=== PATIENT | female | born 1965 | race Caucasian/White ===

== ENCOUNTER 2017-02-10 20:29 | Emergency (ER) | payer SELFPAY ==
[~2017-02-10] VITALS: Ht 170.2 cm; Wt 100.0 kg
[~2017-02-10 20:29] MED LIST: ABILIFY20 MG OR; ABILIFY5 MG OR; ALBUTEROL0.5 % IN; ALBUTEROL90 MCG IN; AMOXICILLIN500 MG OR; AMOXICILLIN500 MG PO; ARTHROTEC 50 OR; ATIVAN0.5 MG PO; ATIVAN1 MG PO; AUGMENTIN875TAB PO; BABY ASPIRIN81 MG OR; BACTRIM DS1 TAB OR; BACTRIM DS1 TAB PO; CARDIZEM120 MG OR; CELEXA20 M1 PO; CELEXA20 MG; CELEXA20 MG OR; CELEXA20 MG PO; CEPHALEXIN500 MG PO; CIPRO XR500 M1 OR; CIPRO500 MG OR; CIPRO500 MG PO; CIPROFLOXACN500 MG PO; COUMADIN5 MG PO; DOXYCYCL HYC100 MG PO; EC-NAPROSYN500 MG PO; ECOTRIN325 MG OR; FLEXERIL OR; FLEXERIL PO; HYDROCHLOROT50 MG OR; INDERAL10 MG PO; KLONOPIN1 MG OR; KLOR-CON20 MEQ OR; LAMICTAL100 M1 PO; LAMICTAL25 M1 PO; LASIX 20 MG TAB20 MG OR; LASIX20 MG OR; LORTAB 10 OR; LORTAB 10 PO; LORTAB 5 OR; LORTAB 5/3255 MG PO; LORTAB 7.5 OR; LORTAB 7.57.5 MG OR; LORTAB 7.57.5 MG PO; LORTAB5 PO; MEDDOSEPAK OR; MEDDOSEPAK PO; METHIMAZOLE10 MG OR; METHIMAZOLE10 MG PO; NAPROSYN500 MG OR; NAPROSYN500 MG PO; NAPROXEN375 MG PO; NAPROXEN500 MG OR; NO MEDS; PERCOCET 5/325M1 TAB PO; PRO-AIR; PROAIR HFA IN; SEROQUEL XR150 MG PO; SERTRALINE100 MG OR; SILVADENE1 % EX; SYMBICORT 160-4.5MCG IN; SYMBICORT1 AE1 IN; TEGRETOL200 MG PO; TRAZODONE150 MG OR; TRAZODONE50 MG PO; TYLENOL325 MG OR; TYLENOL500 MG OR; ULTRAM50 MG OR; VISTARIL 50MG C50 MG OR; VISTARIL50 MG OR; WARFARIN5 MG PO; WELLBUTRIN150 MG OR; XANAX0.25 MG OR; XANAX0.5 MG OR; XANAX0.5 MG PO; ZITHROMAX250 MG OR; ZITHROMAX500 MG OR; ZPAK PO
[2017-02-10] MEDS ORDERED: PERCOCET 5/325M1 TAB PO (21:30)
[2017-02-10 21:40] VITALS: BP 139/74
== END 2017-02-10 21:40 | disposition home or self-care (01) | DRG 605 ==
LOC: ED 20:29
PROC: 0H9QXZZ Drainage of Finger Nail, External Approach (ICD-10-PCS; principal; 2017-02-10)
DX: S60.011A Contusion of right thumb without damage to nail, initial encounter (principal); W23.1XXA Caught, crushed, jammed, or pinched between stationary objects, initial encounter; Y92.009 Unspecified place in unspecified non-institutional (private) residence as the place of occurrence of the external cause

== ENCOUNTER 2017-12-03 18:29 | Emergency (ER) | payer MEDICAID ==
[~2017-12-03] VITALS: Ht 170.2 cm; Wt 104.2 kg
[2017-12-03 19:25] LABS: URINE BILIRUBIN - DIPSTICK NEGATIVE (NEGATIVE); URINE BLOOD DIPSTICK NEGATIVE (NEGATIVE); URINE CLARITY CLEAR; URINE COLOR YELLOW; URINE GLUCOSE - DIPSTICK NEGATIVE (NEGATIVE); URINE KETONE NEGATIVE (NEGATIVE); URINE LEUK ESTERASE NEGATIVE (NEGATIVE); URINE NITRITE - DIPSTICK NEGATIVE (Negative); URINE PROTEIN - DIPSTICK NEGATIVE (NEG-TRACE); URINE SPECIFIC GRAVITY 1.025; URINE UROBILINOGEN - DIPSTICK 0.2 E.U./dL (0.2)
[2017-12-03] MEDS ORDERED: FLEXERIL PO (20:25)
[2017-12-03] MEDS ORDERED: MOTRIN800 MG PO (20:25)
[2017-12-03 20:38] VITALS: BP 160/74
== END 2017-12-03 20:37 | disposition home or self-care (01) | DRG 563 ==
LOC: ED 18:29
DX: S39.012A Strain of muscle, fascia and tendon of lower back, initial encounter (principal); I48.91 Unspecified atrial fibrillation; J44.9 Chronic obstructive pulmonary disease, unspecified; F31.9 Bipolar disorder, unspecified; F41.9 Anxiety disorder, unspecified; F17.210 Nicotine dependence, cigarettes, uncomplicated; X58.XXXA Exposure to other specified factors, initial encounter; Z86.73 Personal history of transient ischemic attack (TIA), and cerebral infarction without residual deficits

== ENCOUNTER 2018-06-24 22:10 | Emergency (ER) | payer MEDICAID ==
[~2018-06-24] VITALS: Ht 170.2 cm; Wt 111.8 kg
[~2018-06-24 22:10] MED LIST changes: +MOTRIN800 MG PO
[2018-06-24 22:35] LABS: HEMATOCRIT 45.3 % (37.0-47.0); HEMOGLOBIN 14.6 g/dl (12.0-16.0); IMMATURE GRANULOCYTES 0.1 % (0.0-5.0); MEAN CORPUSCULAR HGB 28.3 pG CALC (26.0-32.0); MEAN CORPUSCULAR HGB CONC 32.2 g/L CALC (32.0-36.0); NEUT# 3.52 thou/uL (2.00-7.15); RED BLOOD COUNT 5.16 mill/uL (4.20-5.60); RED CELL DISTRI WIDTH 13.2 % (11.5-15.5)
[2018-06-24 22:38] LABS: MEAN CELL VOLUME 87.8 fL CALC (80.0-100.0)
[2018-06-24 22:47] LABS: ALBUMIN 3.4 g/dL (3.2-5.0); ALKALINE PHOSPHATASE 124 u/l (38-126); ANION GAP 8 (6-22 (CALC)); BILIRUBIN, TOTAL 0.5 mg/dL (0.0-1.4); BUN 12 mg/dL (7-17); BUN/CREATININE RATIO 23 (12-20 (CALC)); CARBON DIOXIDE 29 mmol/l (22-30); CHLORIDE 108 mmol/l (95-108); CREATININE 0.5 mg/dL (0.5-1.0); GFR > 60 ML/MIN (>=60 (CALC)); GFR FOR AFR.AMER. > 60 ML/MIN (>=60 (CALC)); POTASSIUM 4.2 mmol/l (3.5-5.1); SGOT/AST 20 u/l (14-36); SODIUM 141 mmol/l (137-146); TOTAL PROTEIN 6.6 g/dL (6.3-8.2)
[2018-06-24 23:10] VITALS: BP 164/78
[2018-06-24] MEDS ORDERED: PREDNISONE10 MG PO (23:14)
[2018-06-24] MEDS ORDERED: TORADOL PO (23:14)
== END 2018-06-24 23:28 | disposition home or self-care (01) ==
LOC: ED 22:10
PROVIDERS: Family Medicine
DX: J44.1 Chronic obstructive pulmonary disease with (acute) exacerbation (principal); F17.210 Nicotine dependence, cigarettes, uncomplicated; R06.02 Shortness of breath; R05 Cough; S29.011A Strain of muscle and tendon of front wall of thorax, initial encounter; X58.XXXA Exposure to other specified factors, initial encounter

== ENCOUNTER 2018-06-30 22:18 | Emergency (ER) | payer OTHER ==
[~2018-06-30] VITALS: Ht 170.2 cm; Wt 111.0 kg
[~2018-06-30 22:18] MED LIST changes: +PREDNISONE10 MG PO; +TORADOL PO
[2018-07-01] MEDS ORDERED: ALBUTEROL SUL0.083 % IN (00:38)
[2018-07-01 04:45] VITALS: BP 122/68
== END 2018-07-01 04:45 | disposition home or self-care (01) ==
LOC: ED 22:18
DX: J44.9 Chronic obstructive pulmonary disease, unspecified (principal); F17.200 Nicotine dependence, unspecified, uncomplicated; R06.02 Shortness of breath; Z76.0 Encounter for issue of repeat prescription

== ENCOUNTER 2018-07-24 18:18 | Emergency (ER) | payer OTHER ==
[~2018-07-24] VITALS: Ht 170.2 cm; Wt 100.0 kg
[~2018-07-24 18:18] MED LIST changes: +ALBUTEROL SUL0.083 % IN
[2018-07-24 18:52] LABS: GFR > 60 ML/MIN (>=60 (CALC)); GFR FOR AFR.AMER. > 60 ML/MIN (>=60 (CALC))
[2018-07-24 18:53] LABS: HEMATOCRIT 46.6 % (37.0-47.0); HEMOGLOBIN 15.4 g/dl (12.0-16.0); IMMATURE GRANULOCYTES 0.4 % (0.0-5.0); MEAN CELL VOLUME 86.9 fL CALC (80.0-100.0); MEAN CORPUSCULAR HGB 28.7 pG CALC (26.0-32.0); NEUT# 2.9 thou/uL (2.00-7.15); RED BLOOD COUNT 5.36 mill/uL (4.20-5.60); RED CELL DISTRI WIDTH 12.2 % (11.5-15.5)
[2018-07-24 19:06] LABS: ALBUMIN 3.3 g/dL (3.2-5.0); ALKALINE PHOSPHATASE 119 u/l (38-126); ANION GAP 12 (6-22 (CALC)); BILIRUBIN, TOTAL 0.3 mg/dL (0.0-1.4); BUN 10 mg/dL (7-17); BUN/CREATININE RATIO 14 (12-20 (CALC)); CARBON DIOXIDE 29 mmol/l (22-30); CHLORIDE 105 mmol/l (95-108); CREATININE 0.7 mg/dL (0.5-1.0); GFR > 60 ML/MIN (>=60 (CALC)); GFR FOR AFR.AMER. > 60 ML/MIN (>=60 (CALC)); SGOT/AST 18 u/l (14-36); SODIUM 142 mmol/l (137-146); TOTAL PROTEIN 6.7 g/dL (6.3-8.2)
[2018-07-24 20:13] VITALS: BP 116/85
[2018-07-24 20:41] LABS: URINE BILIRUBIN - DIPSTICK NEGATIVE (NEGATIVE); URINE BLOOD DIPSTICK NEGATIVE (NEGATIVE); URINE COLOR YELLOW; URINE GLUCOSE - DIPSTICK NEGATIVE (NEGATIVE); URINE KETONE NEGATIVE (NEGATIVE); URINE LEUK ESTERASE NEGATIVE (NEGATIVE); URINE NITRITE - DIPSTICK NEGATIVE (Negative); URINE PROTEIN - DIPSTICK NEGATIVE (NEG-TRACE); URINE SPECIFIC GRAVITY 1.025; URINE UROBILINOGEN - DIPSTICK 0.2 E.U./dL (0.2)
[2018-07-24 20:45] LABS: BARBITURATES NEGATIVE (NEGATIVE); COCAINE NEGATIVE (NEGATIVE); METHADONE NEGATIVE (NEGATIVE); OXCYCODONE NEGATIVE (NEGATIVE); TETRAHYDROCANNABIONOL POSITIVE (NEGATIVE); TRICYLIC ANTIDEPRESSANTS NEGATIVE (NEGATIVE)
== END 2018-07-24 22:07 | disposition home or self-care (01) ==
LOC: ED 18:18
PROVIDERS: Emergency Medicine; Family Medicine
DX: F41.9 Anxiety disorder, unspecified (principal); I48.91 Unspecified atrial fibrillation; F31.9 Bipolar disorder, unspecified; J44.9 Chronic obstructive pulmonary disease, unspecified; F17.200 Nicotine dependence, unspecified, uncomplicated; Z86.73 Personal history of transient ischemic attack (TIA), and cerebral infarction without residual deficits; R53.1 Weakness
CPT/HCPCS: Q9967

== ENCOUNTER 2018-08-27 19:02 | Emergency (ER) | payer OTHER ==
[~2018-08-27] VITALS: Ht 170.2 cm; Wt 111.3 kg
[2018-08-27 20:25] VITALS: BP 168/93
== END 2018-08-27 20:15 | disposition home or self-care (01) ==
LOC: ED 19:02
DX: G89.29 Other chronic pain (principal); M79.602 Pain in left arm; J44.9 Chronic obstructive pulmonary disease, unspecified; F31.9 Bipolar disorder, unspecified; F41.0 Panic disorder [episodic paroxysmal anxiety]; I48.91 Unspecified atrial fibrillation; F17.200 Nicotine dependence, unspecified, uncomplicated; Z86.73 Personal history of transient ischemic attack (TIA), and cerebral infarction without residual deficits

== ENCOUNTER 2018-08-30 13:54 | Emergency (ER) | payer OTHER ==
[~2018-08-30] VITALS: Ht 170.2 cm; Wt 112.7 kg
[2018-08-30] MEDS ORDERED: PROVENTIL HFA IN (14:11)
[2018-08-30] MEDS ORDERED: SYMBICORT1 AE1 IN (14:12)
[2018-08-30] MEDS ORDERED: ATIVAN1 MG PO (14:13)
[2018-08-30] MEDS ORDERED: TRAZODONE50 MG PO (14:13)
[2018-08-30] MEDS ORDERED: LASIX 40 MG40 MG/TAB PO (14:14)
[2018-08-30] MEDS ORDERED: LAMICTAL100 M1 PO (14:14)
[2018-08-30] MEDS ORDERED: K-DUR/KLOR-CON20 MEQ PO (14:15)
[2018-08-30] MEDS ORDERED: METHIMAZOLE5 MG PO (14:15)
[2018-08-30] MEDS ORDERED: CELEBREX100 M1 PO (14:15)
[2018-08-30] MEDS ORDERED: GABAPENTIN100 MG PO (14:16)
[2018-08-30 15:21] LABS: HEMATOCRIT 44.4 % (37.0-47.0); HEMOGLOBIN 14.2 g/dl (12.0-16.0); IMMATURE GRANULOCYTES 0.3 % (0.0-5.0); MEAN CELL VOLUME 87.9 fL CALC (80.0-100.0); MEAN CORPUSCULAR HGB 28.1 pG CALC (26.0-32.0); NEUT# 3.24 thou/uL (2.00-7.15); RED BLOOD COUNT 5.05 mill/uL (4.20-5.60); RED CELL DISTRI WIDTH 12.1 % (11.5-15.5)
[2018-08-30 15:24] LABS: URINE BILIRUBIN - DIPSTICK NEGATIVE (NEGATIVE); URINE BLOOD DIPSTICK NEGATIVE (NEGATIVE); URINE COLOR YELLOW; URINE GLUCOSE - DIPSTICK NEGATIVE (NEGATIVE); URINE KETONE NEGATIVE (NEGATIVE); URINE LEUK ESTERASE NEGATIVE (Negative); URINE NITRITE - DIPSTICK NEGATIVE (Negative); URINE PH 5.5 (4.5-8.0); URINE PROTEIN - DIPSTICK NEGATIVE (NEG-TRACE); URINE SPECIFIC GRAVITY >=1.030; URINE UROBILINOGEN - DIPSTICK 0.2 E.U./dL (0.2)
[2018-08-30 15:28] LABS: BARBITURATES NEGATIVE (NEGATIVE); COCAINE NEGATIVE (NEGATIVE); METHADONE NEGATIVE (NEGATIVE); OXCYCODONE NEGATIVE (NEGATIVE); TETRAHYDROCANNABIONOL NEGATIVE (NEGATIVE); TRICYLIC ANTIDEPRESSANTS NEGATIVE (NEGATIVE)
[2018-08-30 15:29] LABS: URINE CLARITY CLEAR
[2018-08-30 15:40] LABS: ALBUMIN 3.2 g/dL (3.2-5.0); ALKALINE PHOSPHATASE 113 u/l (38-126); ANION GAP 11 (6-22 (CALC)); BILIRUBIN, TOTAL 0.2 mg/dL (0.0-1.4); BUN 15 mg/dL (7-17); BUN/CREATININE RATIO 26 (12-20 (CALC)); CARBON DIOXIDE 27 mmol/l (22-30); CHLORIDE 106 mmol/l (95-108); CREATININE 0.6 mg/dL (0.5-1.0); GFR > 60 ML/MIN (>=60 (CALC)); GFR FOR AFR.AMER. > 60 ML/MIN (>=60 (CALC)); POTASSIUM 3.9 mmol/l (3.5-5.1); SGOT/AST 15 u/l (14-36); SODIUM 140 mmol/l (137-146); TOTAL PROTEIN 6.6 g/dL (6.3-8.2)
[2018-08-30 16:24] VITALS: BP 142/67
[2018-09-04] MEDS ORDERED: CYMBALTA30 MG PO ×2 (10:54→10:58)
[2018-09-04] MEDS ORDERED: LYRICA100 MG PO (10:57)
== END 2018-08-30 16:29 | disposition home or self-care (01) ==
LOC: ED 13:54
PROVIDERS: Emergency Medicine
DX: I10 Essential (primary) hypertension (principal); R53.81 Other malaise; R53.1 Weakness; F17.210 Nicotine dependence, cigarettes, uncomplicated; R11.0 Nausea; I48.91 Unspecified atrial fibrillation

== ENCOUNTER → 2018-10-02 | Outpatient (REF) | payer OTHER ==
[~2018-10-02] MED LIST changes: +CELEBREX100 M1 PO; +CYMBALTA30 MG PO; +GABAPENTIN100 MG PO; +K-DUR/KLOR-CON20 MEQ PO; +LASIX 40 MG40 MG/TAB PO; +LYRICA100 MG PO; +LYRICA200 MG PO; +METHIMAZOLE5 MG PO; +PROVENTIL HFA IN
[2018-10-02 11:43] VITALS: BP 154/94
== END | disposition home or self-care (01) | DRG 951 ==
LOC: PAIN/MGT 11:00
PROVIDERS: ATTEND Anesthesiology Pain Medicine
DX: Z09 Encounter for follow-up examination after completed treatment for conditions other than malignant neoplasm (principal)

== ENCOUNTER 2018-10-20 19:52 | Emergency (ER) | payer OTHER ==
[~2018-10-20] VITALS: Ht 172.7 cm; Wt 118.0 kg
[2018-10-20 22:00] VITALS: BP 106/56
== END 2018-10-20 22:50 | disposition home or self-care (01) ==
LOC: ED 19:52
DX: M17.12 Unilateral primary osteoarthritis, left knee (principal); J44.9 Chronic obstructive pulmonary disease, unspecified; I48.91 Unspecified atrial fibrillation; F17.200 Nicotine dependence, unspecified, uncomplicated
CPT/HCPCS: L1830

== ENCOUNTER 2018-11-17 21:35 | Emergency (ER) | payer OTHER ==
[~2018-11-17] VITALS: Ht 172.7 cm; Wt 125.0 kg
[~2018-11-17 21:35] MED LIST changes: +ATENOLOL25 MG PO; +DOXYCYCLINE100 MG; +INDOMETHACIN50 MG PO
[2018-11-17 22:22] LABS: HEMATOCRIT 46.5 % (37.0-47.0); HEMOGLOBIN 14.5 g/dl (12.0-16.0); IMMATURE GRANULOCYTES 0.7 % (0.0-5.0); MEAN CORPUSCULAR HGB 28.4 pG CALC (26.0-32.0); MEAN CORPUSCULAR HGB CONC 31.2 g/L CALC (32.0-36.0); NEUT# 3.96 thou/uL (2.00-7.15); RED BLOOD COUNT 5.11 mill/uL (4.20-5.60); RED CELL DISTRI WIDTH 13.9 % (11.5-15.5)
[2018-11-17 22:36] LABS: ALBUMIN 3.5 g/dL (3.2-5.0); ALKALINE PHOSPHATASE 97 u/l (38-126); ANION GAP 11 (6-22 (CALC)); BILIRUBIN, TOTAL 0.3 mg/dL (0.0-1.4); BUN 22 mg/dL (7-17); BUN/CREATININE RATIO 25 (12-20 (CALC)); CARBON DIOXIDE 29 mmol/l (22-30); CHLORIDE 102 mmol/l (95-108); CREATININE 0.9 mg/dL (0.5-1.0); GFR > 60 ML/MIN (>=60 (CALC)); GFR FOR AFR.AMER. > 60 ML/MIN (>=60 (CALC)); SGOT/AST 21 u/l (14-36); SODIUM 138 mmol/l (137-146); TOTAL PROTEIN 6.7 g/dL (6.3-8.2)
[2018-11-17 22:44] LABS: MYOGLOBIN 66 ng/mL (0 - 62)
[2018-11-18 00:27] LABS: URINE BILIRUBIN - DIPSTICK NEGATIVE (NEGATIVE); URINE BLOOD DIPSTICK NEGATIVE (NEGATIVE); URINE COLOR YELLOW; URINE GLUCOSE - DIPSTICK NEGATIVE (NEGATIVE); URINE KETONE NEGATIVE (NEGATIVE); URINE LEUK ESTERASE NEGATIVE (NEGATIVE); URINE NITRITE - DIPSTICK NEGATIVE (Negative); URINE PROTEIN - DIPSTICK NEGATIVE (NEG-TRACE); URINE SPECIFIC GRAVITY <=1.005; URINE UROBILINOGEN - DIPSTICK 0.2 E.U./dL (0.2)
[2018-11-18 01:08] VITALS: BP 150/72
[2018-11-18] MEDS ORDERED: CODEINE/GUAIFEN1 SOL PO (01:17)
== END 2018-11-18 01:16 | disposition home or self-care (01) ==
LOC: ED 21:35
PROVIDERS: Emergency Medicine
DX: R07.81 Pleurodynia (principal); J44.9 Chronic obstructive pulmonary disease, unspecified; F17.200 Nicotine dependence, unspecified, uncomplicated; R06.02 Shortness of breath; R05 Cough
CPT/HCPCS: Q9967

== ENCOUNTER 2018-11-20 08:41 | Emergency (ER) | payer OTHER ==
[~2018-11-20] VITALS: Ht 172.7 cm; Wt 140.0 kg
[~2018-11-20 08:41] MED LIST changes: +CODEINE/GUAIFEN1 SOL PO
[2018-11-20] MEDS ORDERED: MOTRIN400 MG PO (10:48)
[2018-11-20] MEDS ORDERED: CYCLOBENZAPR5 MG PO (10:48)
[2018-11-20 11:09] VITALS: BP 116/49
== END 2018-11-20 11:15 | disposition home or self-care (01) ==
LOC: ED 08:41 → ED-I 09:21 → ED 11:15
DX: R07.81 Pleurodynia (principal); M62.838 Other muscle spasm; J44.9 Chronic obstructive pulmonary disease, unspecified; I48.91 Unspecified atrial fibrillation; F17.200 Nicotine dependence, unspecified, uncomplicated; R05 Cough

== ENCOUNTER 2019-01-31 12:09 | Emergency (ER) | payer OTHER ==
[~2019-01-31] VITALS: Ht 172.7 cm; Wt 90.0 kg
[~2019-01-31 12:09] MED LIST changes: +CYCLOBENZAPR5 MG PO; +MOTRIN400 MG PO
[2019-01-31 12:35] LABS: HEMATOCRIT 48.1 % (37.0-47.0); HEMOGLOBIN 15.6 g/dl (12.0-16.0); IMMATURE GRANULOCYTES 0.4 % (0.0-5.0); MEAN CELL VOLUME 91.1 fL CALC (80.0-100.0); MEAN CORPUSCULAR HGB 29.5 pG CALC (26.0-32.0); MEAN CORPUSCULAR HGB CONC 32.4 g/L CALC (32.0-36.0); NEUT# 4.83 thou/uL (2.00-7.15); RED BLOOD COUNT 5.28 mill/uL (4.20-5.60); RED CELL DISTRI WIDTH 12.4 % (11.5-15.5)
[2019-01-31 12:41] LABS: GFR > 60 ML/MIN (>=60 (CALC)); GFR FOR AFR.AMER. > 60 ML/MIN (>=60 (CALC))
[2019-01-31 12:48] LABS: ALBUMIN 3.8 g/dL (3.2-5.0); ALKALINE PHOSPHATASE 95 u/l (38-126); ANION GAP 12 (6-22 (CALC)); BILIRUBIN, TOTAL 0.4 mg/dL (0.0-1.4); BUN 16 mg/dL (7-17); BUN/CREATININE RATIO 21 (12-20 (CALC)); CARBON DIOXIDE 27 mmol/l (22-30); CHLORIDE 106 mmol/l (95-108); CREATININE 0.8 mg/dL (0.5-1.0); GFR > 60 ML/MIN (>=60 (CALC)); GFR FOR AFR.AMER. > 60 ML/MIN (>=60 (CALC)); POTASSIUM 3.9 mmol/l (3.5-5.1); SGOT/AST 22 u/l (14-36); SODIUM 140 mmol/l (137-146); TOTAL PROTEIN 7.2 g/dL (6.3-8.2)
[2019-01-31 13:55] VITALS: BP 140/64
[2019-01-31 14:01] LABS: PROTHROMBIN TIME 10.3 SECONDS (9.0-12.5)
[2019-01-31] MEDS ORDERED: LYRICA50 MG PO (14:20)
[2019-01-31] MEDS ORDERED: ATROVENT H17 MCG/ACT IN (14:23)
[2019-01-31] MEDS ORDERED: LORAZEPAM0.5 MG PO (14:25)
[2019-01-31] MEDS ORDERED: TRAZODONE50 MG PO (14:26)
== END 2019-01-31 13:55 | disposition short-term general hospital (02) ==
LOC: ED 12:09
PROVIDERS: Emergency Medicine
DX: I63.9 Cerebral infarction, unspecified (principal); R47.81 Slurred speech; R42 Dizziness and giddiness; R20.0 Anesthesia of skin; J44.9 Chronic obstructive pulmonary disease, unspecified; I48.91 Unspecified atrial fibrillation; F17.200 Nicotine dependence, unspecified, uncomplicated; Z86.73 Personal history of transient ischemic attack (TIA), and cerebral infarction without residual deficits

== ENCOUNTER 2019-03-17 12:39 | Emergency (ER) | payer OTHER ==
[~2019-03-17] VITALS: Ht 172.7 cm; Wt 150.0 kg
[~2019-03-17 12:39] MED LIST changes: +ATROVENT H17 MCG/ACT IN; +LORAZEPAM0.5 MG PO; +LYRICA50 MG PO
[2019-03-17] MEDS ORDERED: ELIQUIS5 MG PO (13:06)
[2019-03-17] MEDS ORDERED: LYRICA100 MG PO (13:07)
[2019-03-17] MEDS ORDERED: FUROSEMIDE20 MG PO (13:08)
[2019-03-17] MEDS ORDERED: NEURONTIN300 MG PO (13:09)
[2019-03-17] MEDS ORDERED: SPIRIVA HANDIH18 MCG IN (13:09)
[2019-03-17] MEDS ORDERED: ALBUTEROL SUL0.083 % IN (13:10)
[2019-03-17] MEDS ORDERED: LAMICTAL150 MG PO (13:11)
[2019-03-17] MEDS ORDERED: METHOCARBAM750 MG PO (13:12)
[2019-03-17] MEDS ORDERED: ATENOLOL25 MG PO (13:13)
[2019-03-17] MEDS ORDERED: PROAIR HFA108 MCG/AC PO (13:13)
[2019-03-17] MEDS ORDERED: NARCAN4 MG/0.1 M (13:14)
[2019-03-17] MEDS ORDERED: HYDROCO/APAP1 TA9 PO (13:14)
[2019-03-17 14:14] VITALS: BP 158/79
== END 2019-03-17 14:17 | disposition home or self-care (01) ==
LOC: ED 12:39
DX: M25.561 Pain in right knee (principal); M17.11 Unilateral primary osteoarthritis, right knee; J44.9 Chronic obstructive pulmonary disease, unspecified; I48.91 Unspecified atrial fibrillation; F17.210 Nicotine dependence, cigarettes, uncomplicated; W01.0XXA Fall on same level from slipping, tripping and stumbling without subsequent striking against object, initial encounter; Y92.009 Unspecified place in unspecified non-institutional (private) residence as the place of occurrence of the external cause; Z79.899 Other long term (current) drug therapy

== ENCOUNTER 2019-05-18 07:25 | Emergency (ER) | payer OTHER ==
[~2019-05-18] VITALS: Ht 172.7 cm; Wt 139.0 kg
[~2019-05-18 07:25] MED LIST changes: +ELIQUIS5 MG PO; +FUROSEMIDE20 MG PO; +HYDROCO/APAP1 TA9 PO; +LAMICTAL150 MG PO; +METHOCARBAM750 MG PO; +NARCAN4 MG/0.1 M; +NEURONTIN300 MG PO; +PROAIR HFA108 MCG/AC PO; +SPIRIVA HANDIH18 MCG IN
[2019-05-18 07:59] VITALS: BP 194/99
== END 2019-05-18 09:12 | disposition home or self-care (01) ==
LOC: ED 07:25
DX: G89.29 Other chronic pain (principal); M54.5 Low back pain; R60.0 Localized edema; J44.9 Chronic obstructive pulmonary disease, unspecified; F17.210 Nicotine dependence, cigarettes, uncomplicated; I48.91 Unspecified atrial fibrillation; Z86.73 Personal history of transient ischemic attack (TIA), and cerebral infarction without residual deficits

== ENCOUNTER 2019-06-27 09:46 | Emergency (ER) | payer OTHER ==
[~2019-06-27] VITALS: Ht 172.7 cm; Wt 136.0 kg
[2019-06-27] MEDS ORDERED: LORTAB 7.57.5 MG PO (10:09)
[2019-06-27] MEDS ORDERED: ROBAXIN-750750 MG PO (10:25)
[2019-06-27] MEDS ORDERED: MELOXICAM7.5 MG PO (10:27)
[2019-06-27] MEDS ORDERED: TRAZODONE50 MG PO (10:28)
[2019-06-27] MEDS ORDERED: ADULT ASPIRIN R81 MG PO (10:29)
[2019-06-27 10:35] VITALS: BP 143/85
== END 2019-06-27 10:35 | disposition home or self-care (01) ==
LOC: ED 09:46
DX: S51.812A Laceration without foreign body of left forearm, initial encounter (principal); W26.0XXA Contact with knife, initial encounter; Y93.G3 Activity, cooking and baking; Y92.010 Kitchen of single-family (private) house as the place of occurrence of the external cause

== ENCOUNTER 2019-07-12 22:33 | Emergency (ER) | payer OTHER ==
[~2019-07-12] VITALS: Ht 172.7 cm; Wt 136.0 kg
[~2019-07-12 22:33] MED LIST changes: +ADULT ASPIRIN R81 MG PO; +MELOXICAM7.5 MG PO; +ROBAXIN-750750 MG PO
[2019-07-13 02:26] LABS: HEMATOCRIT 46.7 % (37.0-47.0); HEMOGLOBIN 14.7 g/dl (12.0-16.0); IMMATURE GRANULOCYTES 0.5 % (0.0-5.0); MEAN CELL VOLUME 94.3 fL CALC (80.0-100.0); MEAN CORPUSCULAR HGB 29.7 pG CALC (26.0-32.0); MEAN CORPUSCULAR HGB CONC 31.5 g/L CALC (32.0-36.0); NEUT# 4.03 thou/uL (2.00-7.15); RED BLOOD COUNT 4.95 mill/uL (4.20-5.60); RED CELL DISTRI WIDTH 12.4 % (11.5-15.5)
[2019-07-13 02:31] LABS: ALBUMIN 3.5 g/dL (3.2-5.0); ALKALINE PHOSPHATASE 68 u/l (38-126); ANION GAP 10 (6-22 (CALC)); BILIRUBIN, TOTAL 0.4 mg/dL (0.0-1.4); BUN 19 mg/dL (7-17); BUN/CREATININE RATIO 29 (12-20 (CALC)); CARBON DIOXIDE 29 mmol/l (22-30); CHLORIDE 106 mmol/l (95-108); CREATININE 0.6 mg/dL (0.5-1.0); GFR > 60 ML/MIN (>=60 (CALC)); GFR FOR AFR.AMER. > 60 ML/MIN (>=60 (CALC)); POTASSIUM 4.1 mmol/l (3.5-5.1); SGOT/AST 17 u/l (14-36); SODIUM 141 mmol/l (137-146)
[2019-07-13 02:44] LABS: MYOGLOBIN 23 ng/mL (0 - 62)
[2019-07-13 03:15] LABS: URINE BILIRUBIN - DIPSTICK NEGATIVE (NEGATIVE); URINE BLOOD DIPSTICK TRACE-INTACT (NEGATIVE); URINE COLOR YELLOW; URINE GLUCOSE - DIPSTICK NEGATIVE (NEGATIVE); URINE KETONE NEGATIVE (NEGATIVE); URINE PROTEIN - DIPSTICK NEGATIVE (NEG-TRACE); URINE SPECIFIC GRAVITY 1.025; URINE UROBILINOGEN - DIPSTICK 0.2 E.U./dL (0.2)
[2019-07-13 03:16] LABS: URINE LEUK ESTERASE MODERATE (NEGATIVE); URINE NITRITE - DIPSTICK NEGATIVE (Negative)
[2019-07-13 03:27] LABS: URINE BACTERIA MODERATE hpf; URINE EPITHELIAL CELLS FEW EPI/hpf (0-FEW); URINE WBC >100 WBC/hpf (0-5)
[2019-07-13 03:28] LABS: URINE TRICHOMONAS FEW hpf
[2019-07-13] MEDS ORDERED: LASIX 40 MG TAB40 MG PO (05:27)
[2019-07-13] MEDS ORDERED: CIPROFLOXACN500 MG PO (05:27)
[2019-07-13 06:40] VITALS: BP 128/59
== END 2019-07-13 06:40 | disposition home or self-care (01) ==
LOC: ED 22:33
PROVIDERS: Emergency Medicine
DX: R60.0 Localized edema (principal); N39.0 Urinary tract infection, site not specified; J44.9 Chronic obstructive pulmonary disease, unspecified; I48.91 Unspecified atrial fibrillation; F17.210 Nicotine dependence, cigarettes, uncomplicated; Z86.73 Personal history of transient ischemic attack (TIA), and cerebral infarction without residual deficits
CPT/HCPCS: J1956

== ENCOUNTER 2019-09-04 | Emergency (ER) | payer OTHER ==
[~2019-09-04] MED LIST changes: +LASIX 40 MG TAB40 MG PO
[2019-09-04 18:15] LABS: HEMATOCRIT 45.8 % (37.0-47.0); HEMOGLOBIN 14.9 g/dl (12.0-16.0); IMMATURE GRANULOCYTES 0.4 % (0.0-5.0); MEAN CORPUSCULAR HGB 29.9 pG CALC (26.0-32.0); MEAN CORPUSCULAR HGB CONC 32.5 g/L CALC (32.0-36.0); NEUT# 4.12 thou/uL (2.00-7.15); RED BLOOD COUNT 4.98 mill/uL (4.20-5.60); RED CELL DISTRI WIDTH 12.7 % (11.5-15.5)
[2019-09-04 18:31] LABS: ALBUMIN 3.9 g/dL (3.2-5.0); ALKALINE PHOSPHATASE 77 u/l (38-126); ANION GAP 11 (6-22 (CALC)); BILIRUBIN, TOTAL 0.5 mg/dL (0.0-1.4); BUN 12 mg/dL (7-17); BUN/CREATININE RATIO 19 (12-20 (CALC)); CARBON DIOXIDE 29 mmol/l (22-30); CHLORIDE 103 mmol/l (95-108); CREATININE 0.6 mg/dL (0.5-1.0); GFR > 60 ML/MIN (>=60 (CALC)); GFR FOR AFR.AMER. > 60 ML/MIN (>=60 (CALC)); POTASSIUM 3.9 mmol/l (3.5-5.1); SGOT/AST 19 u/l (14-36); SODIUM 139 mmol/l (137-146); TOTAL PROTEIN 7.7 g/dL (6.3-8.2)
[2019-09-04 18:34] LABS: ACT PARTIAL THROMBO TIME 25.7 SECONDS (20.0-32.5); D-DIMER 0.4 mg/L (0.19-0.60)
[2019-09-04 18:43] LABS: MYOGLOBIN 38 ng/mL (0 - 62)
[2019-09-04] MEDS ORDERED: BUMETANIDE1 MG PO (19:01)
[2019-09-04] MEDS ORDERED: CEPHALEXIN500 M1 PO (19:52)
== END 2019-09-04 20:11 | disposition home or self-care (01) ==
PROVIDERS: Family Medicine
DX: J44.1 Chronic obstructive pulmonary disease with (acute) exacerbation (principal); I48.91 Unspecified atrial fibrillation; F17.200 Nicotine dependence, unspecified, uncomplicated; Z86.73 Personal history of transient ischemic attack (TIA), and cerebral infarction without residual deficits

== ENCOUNTER 2019-11-24 | Emergency (ER) | payer OTHER ==
[~2019-11-24] MED LIST changes: +BUMETANIDE1 MG PO; +CEPHALEXIN500 M1 PO
[2019-11-24] MEDS ORDERED: CEPHALEXIN500 M1 PO (19:51)
== END 2019-11-24 20:12 | disposition home or self-care (01) ==
DX: M79.662 Pain in left lower leg (principal); J44.9 Chronic obstructive pulmonary disease, unspecified; I48.91 Unspecified atrial fibrillation; F17.200 Nicotine dependence, unspecified, uncomplicated; Z86.73 Personal history of transient ischemic attack (TIA), and cerebral infarction without residual deficits

== ENCOUNTER 2020-01-09 15:46 | Emergency (ER) | payer OTHER ==
[2020-01-09 22:20] VITALS: BP 132/69
== END 2020-01-09 22:35 | disposition home or self-care (01) ==
LOC: ED 15:46
DX: M25.562 Pain in left knee (principal); J44.9 Chronic obstructive pulmonary disease, unspecified; I48.91 Unspecified atrial fibrillation; F17.210 Nicotine dependence, cigarettes, uncomplicated; W10.9XXA Fall (on) (from) unspecified stairs and steps, initial encounter; Y92.009 Unspecified place in unspecified non-institutional (private) residence as the place of occurrence of the external cause; Z86.73 Personal history of transient ischemic attack (TIA), and cerebral infarction without residual deficits

== ENCOUNTER 2020-06-15 10:50 | Emergency (ER) | payer OTHER ==
[~2020-06-15] VITALS: Ht 172.7 cm; Wt 139.1 kg
[2020-06-15] MEDS ORDERED: SILVADENE1 % EX (11:03)
[2020-06-15 13:47] VITALS: BP 134/63
== END 2020-06-15 13:47 | disposition home or self-care (01) ==
LOC: ED 10:50
DX: T24.212A Burn of second degree of left thigh, initial encounter (principal); T31.0 Burns involving less than 10% of body surface; J44.9 Chronic obstructive pulmonary disease, unspecified; F31.9 Bipolar disorder, unspecified; F41.0 Panic disorder [episodic paroxysmal anxiety]; I48.91 Unspecified atrial fibrillation; F17.200 Nicotine dependence, unspecified, uncomplicated; X10.2XXA Contact with fats and cooking oils, initial encounter; Y93.G3 Activity, cooking and baking; Y92.000 Kitchen of unspecified non-institutional (private) residence as the place of occurrence of the external cause; Z86.73 Personal history of transient ischemic attack (TIA), and cerebral infarction without residual deficits

== ENCOUNTER 2020-09-26 12:02 | Emergency (ER) | payer OTHER ==
[~2020-09-26] VITALS: Ht 172.7 cm; Wt 137.0 kg
[2020-09-26 13:21] LABS: HEMATOCRIT 48.6 % (37.0-47.0); HEMOGLOBIN 15.5 g/dl (12.0-16.0); IMMATURE GRANULOCYTES 0.3 % (0.0-5.0); MEAN CORPUSCULAR HGB 29.4 pG CALC (26.0-32.0); MEAN CORPUSCULAR HGB CONC 31.9 g/dL CAL (32.0-36.0); NEUT# 3.4 thou/uL (2.00-7.15); RED BLOOD COUNT 5.28 mill/uL (4.20-5.60); RED CELL DISTRI WIDTH 12.4 % (11.5-15.5)
[2020-09-26 13:45] LABS: ALBUMIN 3.8 g/dL (3.2-5.0); ALKALINE PHOSPHATASE 83 u/l (38-126); ANION GAP 8 (6-22 (CALC)); BILIRUBIN, TOTAL 0.7 mg/dL (0.0-1.4); BUN 14 mg/dL (7-17); BUN/CREATININE RATIO 17 (12-20 (CALC)); CARBON DIOXIDE 30 mmol/l (22-30); CHLORIDE 102 mmol/l (95-108); CREATININE 0.8 mg/dL (0.5-1.0); GFR > 60 ML/MIN (>=60 (CALC)); GFR FOR AFR.AMER. > 60 ML/MIN (>=60 (CALC)); POTASSIUM 4.5 mmol/l (3.5-5.1); SGOT/AST 22 u/l (14-36); SODIUM 135 mmol/l (137-146); TOTAL PROTEIN 7.3 g/dL (6.3-8.2)
[2020-09-26 13:48] LABS: ACT PARTIAL THROMBO TIME 26.7 SECONDS (20.0-32.5); PROTHROMBIN TIME 10.3 SECONDS (9.0-12.5)
[2020-09-26 16:12] VITALS: BP 135/64
== END 2020-09-26 16:12 | disposition left against medical advice (07) ==
LOC: ED 12:02 → ED-I 13:28 → ED 16:12
PROVIDERS: Student in an Organized Health Care Education/Training Program
DX: R07.9 Chest pain, unspecified (principal); J44.9 Chronic obstructive pulmonary disease, unspecified; F31.9 Bipolar disorder, unspecified; F41.0 Panic disorder [episodic paroxysmal anxiety]; I48.91 Unspecified atrial fibrillation; F17.200 Nicotine dependence, unspecified, uncomplicated; Z91.19 Patient's noncompliance with other medical treatment and regimen; Z86.73 Personal history of transient ischemic attack (TIA), and cerebral infarction without residual deficits; Z20.822 Contact with and (suspected) exposure to COVID-19

== ENCOUNTER 2020-10-08 19:54 | Emergency (ER) | payer OTHER ==
[~2020-10-08] VITALS: Ht 172.7 cm; Wt 136.4 kg
[2020-10-08] MEDS ORDERED: AMOXICILLIN500 MG PO (21:24)
[2020-10-08] MEDS ORDERED: NAPROXEN500 MG PO (21:24)
[2020-10-08 22:10] VITALS: BP 171/74
== END 2020-10-08 22:10 | disposition home or self-care (01) ==
LOC: ED 19:54
DX: S61.215A Laceration without foreign body of left ring finger without damage to nail, initial encounter (principal); J44.9 Chronic obstructive pulmonary disease, unspecified; F31.9 Bipolar disorder, unspecified; F41.9 Anxiety disorder, unspecified; I48.91 Unspecified atrial fibrillation; F17.210 Nicotine dependence, cigarettes, uncomplicated; W20.8XXA Other cause of strike by thrown, projected or falling object, initial encounter; Y93.89 Activity, other specified; Y92.009 Unspecified place in unspecified non-institutional (private) residence as the place of occurrence of the external cause; Z86.73 Personal history of transient ischemic attack (TIA), and cerebral infarction without residual deficits

== ENCOUNTER 2021-03-20 09:03 | Emergency (ER) | payer OTHER ==
[~2021-03-20] VITALS: Ht 172.7 cm; Wt 140.0 kg
[~2021-03-20 09:03] MED LIST changes: +NAPROXEN500 MG PO
[2021-03-20 10:38] VITALS: BP 159/72
== END 2021-03-20 11:32 | disposition home or self-care (01) ==
LOC: ED 09:03
DX: S80.02XA Contusion of left knee, initial encounter (principal); I10 Essential (primary) hypertension; J44.9 Chronic obstructive pulmonary disease, unspecified; F31.9 Bipolar disorder, unspecified; I48.91 Unspecified atrial fibrillation; F41.0 Panic disorder [episodic paroxysmal anxiety]; F17.210 Nicotine dependence, cigarettes, uncomplicated; W01.0XXA Fall on same level from slipping, tripping and stumbling without subsequent striking against object, initial encounter; Y92.512 Supermarket, store or market as the place of occurrence of the external cause; Z86.73 Personal history of transient ischemic attack (TIA), and cerebral infarction without residual deficits

== ENCOUNTER 2021-03-27 07:31 | Emergency (ER) | payer OTHER ==
[~2021-03-27] VITALS: Ht 172.7 cm; Wt 138.6 kg
[2021-03-27] MEDS ORDERED: MEDDOSEPAK PO (09:25)
[2021-03-27] MEDS ORDERED: NAPROXEN500 MG PO (09:25)
[2021-03-27] MEDS ORDERED: KEFLEX500 MG PO (09:25)
[2021-03-27 09:38] VITALS: BP 137/61
== END 2021-03-27 10:42 | disposition home or self-care (01) ==
LOC: ED 07:31
DX: S20.212A Contusion of left front wall of thorax, initial encounter (principal); J44.1 Chronic obstructive pulmonary disease with (acute) exacerbation; I10 Essential (primary) hypertension; F31.9 Bipolar disorder, unspecified; I48.91 Unspecified atrial fibrillation; F41.0 Panic disorder [episodic paroxysmal anxiety]; F17.200 Nicotine dependence, unspecified, uncomplicated; W19.XXXA Unspecified fall, initial encounter; Z86.73 Personal history of transient ischemic attack (TIA), and cerebral infarction without residual deficits; Z20.822 Contact with and (suspected) exposure to COVID-19

== ENCOUNTER 2021-10-26 11:05 | Observation (INO) | payer OTHER ==
[~2021-10-26] VITALS: Ht 177.8 cm; Wt 149.4 kg
[2021-10-26] VITALS (7 sets, daily range): BP systolic 110–151; BP diastolic 59–69
[~2021-10-26 11:05] MED LIST changes: +KEFLEX500 MG PO
[2021-10-26 11:45] LABS: HEMATOCRIT 48.5 % (37.0-47.0); HEMOGLOBIN 15.6 g/dl (12.0-16.0); IMMATURE GRANULOCYTES 0.4 % (0.0-5.0); MEAN CELL VOLUME 95.8 fL CALC (80.0-100.0); MEAN CORPUSCULAR HGB 30.8 pG CALC (26.0-32.0); MEAN CORPUSCULAR HGB CONC 32.2 g/dL CAL (32.0-36.0); NEUT# 5.33 thou/uL (2.00-7.15); RED BLOOD COUNT 5.06 mill/uL (4.20-5.60); RED CELL DISTRI WIDTH 12.5 % (11.5-15.5)
[2021-10-26 11:54] LABS: INTERNATIONAL NORMALIZED RATIO 1.1 RATIO (0.7-1.3)
[2021-10-26 12:00] LABS: ALBUMIN 3.5 g/dL (3.2-5.0); ALKALINE PHOSPHATASE 72 u/l (38-126); ANION GAP 9 (6-22 (CALC)); BILIRUBIN, TOTAL 0.3 mg/dL (0.0-1.4); BUN 9 mg/dL (7-17); BUN/CREATININE RATIO 13 (12-20 (CALC)); CARBON DIOXIDE 29 mmol/l (22-30); CHLORIDE 105 mmol/l (95-108); CPK 40 u/l (30-165); CREATININE 0.7 mg/dL (0.5-1.0); GFR > 60 ML/MIN (>=60 (CALC)); GFR FOR AFR.AMER. > 60 ML/MIN (>=60 (CALC)); POTASSIUM 4.4 mmol/l (3.5-5.1); SGOT/AST 17 u/l (14-36); SODIUM 138 mmol/l (137-146); TOTAL PROTEIN 6.7 g/dL (6.3-8.2)
[2021-10-26] MEDS ORDERED: MELOXICAM7.5 MG PO (13:20)
[2021-10-26] MEDS ORDERED: LYRICA100 MG PO (13:20)
[2021-10-26] MEDS ORDERED: TRAZODONE50 MG PO (13:21)
[2021-10-26] MEDS ORDERED: LAMICTAL200 M1 PO (13:21)
[2021-10-26] MEDS ORDERED: CYMBALTA30 MG PO (13:22)
[2021-10-26] MEDS ORDERED: CIPROFLOXACN500 MG PO (13:22)
[2021-10-26] MEDS ORDERED: LORAZEPAM0.5 MG PO (13:23)
[2021-10-26] MEDS ORDERED: ATENOLOL25 MG PO (13:25)
[2021-10-26] MEDS ORDERED: PROAIR HFA IN (13:26)
[2021-10-26] MEDS ORDERED: LOSARTAN POTASS50 MG PO (13:26)
[2021-10-26] MEDS ORDERED: DITROPAN XL5 MG PO (13:26)
[2021-10-26] MEDS ORDERED: SPIRIVA HANDIH18 MCG PO (13:27)
[2021-10-26] MEDS ORDERED: LASIX20 MG PO (13:28)
[2021-10-26] MEDS ORDERED: K-TABS10 MEQ PO (13:28)
[2021-10-26] MEDS ORDERED: FLOVENT HF110 MCG/AC PO (13:28)
[2021-10-27 04:00] VITALS: BP 122/52
[2021-10-27 05:19] LABS: HEMATOCRIT 45.7 % (37.0-47.0); HEMOGLOBIN 14.3 g/dl (12.0-16.0); MEAN CELL VOLUME 97.9 fL CALC (80.0-100.0); MEAN CORPUSCULAR HGB 30.6 pG CALC (26.0-32.0); MEAN CORPUSCULAR HGB CONC 31.3 g/dL CAL (32.0-36.0); RED BLOOD COUNT 4.67 mill/uL (4.20-5.60); RED CELL DISTRI WIDTH 12.4 % (11.5-15.5)
[2021-10-27 05:37] LABS: ANION GAP 8 (6-22 (CALC)); BUN 13 mg/dL (7-17); BUN/CREATININE RATIO 16 (12-20 (CALC)); CARBON DIOXIDE 29 mmol/l (22-30); CHLORIDE 109 mmol/l (95-108); CREATININE 0.8 mg/dL (0.5-1.0); GFR > 60 ML/MIN (>=60 (CALC)); GFR FOR AFR.AMER. > 60 ML/MIN (>=60 (CALC)); MAGNESIUM 2.2 mg/dL (1.6-2.3); POTASSIUM 4.2 mmol/l (3.5-5.1); SODIUM 141 mmol/l (137-146)
[2021-10-27 07:56] VITALS: BP 137/75
[2021-10-27] MEDS ORDERED: HYDROCO/APAP1 T10 PO (11:56)
[2021-10-27 14:39] VITALS: BP 148/58
[2021-10-27 19:51] VITALS: BP 124/49
[2021-10-28 04:24] VITALS: BP 108/42
[2021-10-28 05:43] LABS: HEMATOCRIT 45.2 % (37.0-47.0); HEMOGLOBIN 14.4 g/dl (12.0-16.0); MEAN CELL VOLUME 97.8 fL CALC (80.0-100.0); MEAN CORPUSCULAR HGB 31.2 pG CALC (26.0-32.0); MEAN CORPUSCULAR HGB CONC 31.9 g/dL CAL (32.0-36.0); RED BLOOD COUNT 4.62 mill/uL (4.20-5.60); RED CELL DISTRI WIDTH 12.3 % (11.5-15.5)
[2021-10-28 05:59] LABS: ANION GAP 7 (6-22 (CALC)); BUN 11 mg/dL (7-17); BUN/CREATININE RATIO 18 (12-20 (CALC)); CARBON DIOXIDE 28 mmol/l (22-30); CHLORIDE 109 mmol/l (95-108); CREATININE 0.6 mg/dL (0.5-1.0); GFR > 60 ML/MIN (>=60 (CALC)); GFR FOR AFR.AMER. > 60 ML/MIN (>=60 (CALC)); POTASSIUM 4.3 mmol/l (3.5-5.1); SODIUM 139 mmol/l (137-146)
[2021-10-28 08:30] VITALS: BP 143/5
[2021-10-28] MEDS ORDERED: DOXYCYCLINE100 MG PO (10:45)
== END 2021-10-28 13:20 | disposition home or self-care (01) ==
LOC: ED 11:05 → MS2 13:25
PROVIDERS: Internal Medicine; ADMIT Hospitalist; ATTEND Hospitalist
DX: L03.116 Cellulitis of left lower limb (principal); I10 Essential (primary) hypertension; E11.9 Type 2 diabetes mellitus without complications; J44.9 Chronic obstructive pulmonary disease, unspecified; I48.91 Unspecified atrial fibrillation; F31.9 Bipolar disorder, unspecified; F41.0 Panic disorder [episodic paroxysmal anxiety]; Z23 Encounter for immunization; Z86.73 Personal history of transient ischemic attack (TIA), and cerebral infarction without residual deficits; Z20.822 Contact with and (suspected) exposure to COVID-19
CPT/HCPCS: A6212; G0378; J1650

== ENCOUNTER 2021-11-25 13:37 | Emergency (ER) | payer OTHER ==
[~2021-11-25] VITALS: Ht 177.8 cm; Wt 140.0 kg
[~2021-11-25 13:37] MED LIST changes: +DITROPAN XL5 MG PO; +DOXYCYCLINE100 MG PO; +FLOVENT HF110 MCG/AC PO; +HYDROCO/APAP1 T10 PO; +K-TABS10 MEQ PO; +LAMICTAL200 M1 PO; +LASIX20 MG PO; +LOSARTAN POTASS50 MG PO; +SPIRIVA HANDIH18 MCG PO
[2021-11-25 14:13] LABS: HEMATOCRIT 50.3 % (37.0-47.0); HEMOGLOBIN 16.3 g/dl (12.0-16.0); IMMATURE GRANULOCYTES 0.3 % (0.0-5.0); MEAN CELL VOLUME 95.8 fL CALC (80.0-100.0); MEAN CORPUSCULAR HGB CONC 32.4 g/dL CAL (32.0-36.0); NEUT# 4.71 thou/uL (2.00-7.15); RED BLOOD COUNT 5.25 mill/uL (4.20-5.60); RED CELL DISTRI WIDTH 12.4 % (11.5-15.5)
[2021-11-25 14:49] LABS: ALBUMIN 3.8 g/dL (3.2-5.0); ALKALINE PHOSPHATASE 81 u/l (38-126); BUN 11 mg/dL (7-17); BUN/CREATININE RATIO 16 (12-20 (CALC)); CARBON DIOXIDE 28 mmol/l (22-30); CHLORIDE 107 mmol/l (95-108); CREATININE 0.7 mg/dL (0.5-1.0); GFR > 60 ML/MIN (>=60 (CALC)); GFR FOR AFR.AMER. > 60 ML/MIN (>=60 (CALC)); SGOT/AST 20 u/l (14-36); SODIUM 139 mmol/l (137-146); TOTAL PROTEIN 7.1 g/dL (6.3-8.2)
[2021-11-25 14:52] LABS: ANION GAP 8 (6-22 (CALC)); BILIRUBIN, TOTAL 0.6 mg/dL (0.0-1.4); POTASSIUM 4.2 mmol/l (3.5-5.1)
[2021-11-25 15:36] VITALS: BP 164/85
== END 2021-11-25 15:52 | disposition home or self-care (01) ==
LOC: ED 13:37
PROVIDERS: Nurse Practitioner
DX: S81.802A Unspecified open wound, left lower leg, initial encounter (principal); L03.116 Cellulitis of left lower limb; I10 Essential (primary) hypertension; F31.9 Bipolar disorder, unspecified; F41.9 Anxiety disorder, unspecified; I48.91 Unspecified atrial fibrillation; F17.200 Nicotine dependence, unspecified, uncomplicated; X58.XXXA Exposure to other specified factors, initial encounter; Z86.73 Personal history of transient ischemic attack (TIA), and cerebral infarction without residual deficits

== ENCOUNTER 2022-03-06 09:36 | Emergency (ER) | payer OTHER ==
[~2022-03-06] VITALS: Ht 177.8 cm; Wt 148.1 kg
[2022-03-06 09:43] VITALS: BP 149/80
[2022-03-06] MEDS ORDERED: PREDNISONE50 MG PO (10:44)
[2022-03-06 11:00] VITALS: BP 149/80
== END 2022-03-06 11:00 | disposition home or self-care (01) ==
LOC: ED 09:36
DX: M17.12 Unilateral primary osteoarthritis, left knee (principal); I10 Essential (primary) hypertension; J44.9 Chronic obstructive pulmonary disease, unspecified; I48.91 Unspecified atrial fibrillation; F31.9 Bipolar disorder, unspecified; F41.0 Panic disorder [episodic paroxysmal anxiety]; Z86.73 Personal history of transient ischemic attack (TIA), and cerebral infarction without residual deficits; F17.210 Nicotine dependence, cigarettes, uncomplicated

== ENCOUNTER 2022-07-05 22:16 | Emergency (ER) | payer OTHER ==
[~2022-07-05] VITALS: Ht 177.8 cm; Wt 306.0 kg
[~2022-07-05 22:16] MED LIST changes: +PREDNISONE50 MG PO
[2022-07-05 22:59] LABS: HEMATOCRIT 48.6 % (37.0-47.0); HEMOGLOBIN 15.9 g/dl (12.0-16.0); IMMATURE GRANULOCYTES 0.3 % (0.0-5.0); MEAN CELL VOLUME 94.4 fL CALC (80.0-100.0); MEAN CORPUSCULAR HGB 30.9 pG CALC (26.0-32.0); MEAN CORPUSCULAR HGB CONC 32.7 g/dL CAL (32.0-36.0); NEUT# 6.89 thou/uL (2.00-7.15); RED BLOOD COUNT 5.15 mill/uL (4.20-5.60)
[2022-07-05 23:19] LABS: ALKALINE PHOSPHATASE 89 u/l (38-126); ANION GAP 11 (6-22 (CALC)); BILIRUBIN, TOTAL 0.6 mg/dL (0.0-1.4); BUN 12 mg/dL (7-17); BUN/CREATININE RATIO 16 (12-20 (CALC)); CARBON DIOXIDE 28 mmol/l (22-30); CHLORIDE 106 mmol/l (95-108); CREATININE 0.7 mg/dL (0.5-1.0); GFR FOR AFR.AMER. > 60 ML/MIN (>=60 (CALC)); GFR OTHER RACES > 60 ML/MIN (>=60 (CALC)); POTASSIUM 3.8 mmol/l (3.5-5.1); SGOT/AST 28 u/l (14-36); SODIUM 141 mmol/l (137-146); TOTAL PROTEIN 7.5 g/dL (6.3-8.2)
[2022-07-05 23:32] VITALS: BP 145/65
[2022-07-05] MEDS ORDERED: PREDNISONE50 MG PO (23:37)
[2022-07-05] MEDS ORDERED: VIBRAMYCIN100 M2 PO (23:37)
[2022-07-05 23:46] VITALS: BP 159/79
[2022-07-06 00:20] VITALS: BP 159/79
== END 2022-07-06 00:40 | disposition home or self-care (01) ==
LOC: ED 22:16
PROVIDERS: Family Medicine
DX: J44.1 Chronic obstructive pulmonary disease with (acute) exacerbation (principal); I10 Essential (primary) hypertension; F31.9 Bipolar disorder, unspecified; F41.9 Anxiety disorder, unspecified; I48.91 Unspecified atrial fibrillation; Z86.73 Personal history of transient ischemic attack (TIA), and cerebral infarction without residual deficits; F17.210 Nicotine dependence, cigarettes, uncomplicated; Z20.822 Contact with and (suspected) exposure to COVID-19

== ENCOUNTER 2022-10-12 05:57 | Emergency (ER) | payer OTHER ==
[~2022-10-12] VITALS: Ht 177.8 cm; Wt 137.0 kg
[~2022-10-12 05:57] MED LIST changes: +VIBRAMYCIN100 M2 PO
[2022-10-12 06:05] VITALS: BP 160/85
[2022-10-12 06:26] LABS: BASO% 0.3 % (0-3); EOS% 1.9 % (0-8); IMMATURE GRANULOCYTES 0.3 % (0.0-5.0); LYMPH% 26.2 % (15-41); MEAN CELL VOLUME 95.1 fL CALC (80.0-100.0); MEAN CORPUSCULAR HGB 29.9 pG CALC (26.0-32.0); MEAN CORPUSCULAR HGB CONC 31.4 g/dL CAL (32.0-36.0); MONO% 10.2 % (2-13); NEUT# 3.96 thou/uL (2.00-7.15); NEUT% 61.1 % (42-76); RED BLOOD COUNT 5.36 mill/uL (4.20-5.60); RED CELL DISTRI WIDTH 12.5 % (11.5-15.5)
[2022-10-12 06:31] VITALS: BP 170/86
[2022-10-12 06:42] LABS: D-DIMER 0.34 mg/L (0.19-0.60)
[2022-10-12 06:43] LABS: ALBUMIN 4.1 g/dL (3.2-5.0); ALKALINE PHOSPHATASE 93 u/l (38-126); ANION GAP 7 (6-22 (CALC)); BILIRUBIN, TOTAL 0.5 mg/dL (0.02-1.3); BUN 13 mg/dL (7-17); BUN/CREATININE RATIO 19 (12-20 (CALC)); CARBON DIOXIDE 30 mmol/l (22-30); CHLORIDE 110 mmol/l (95-108); CREATININE 0.7 mg/dL (0.5-1.0); GFR FOR AFR.AMER. > 60 ML/MIN (>=60 (CALC)); GFR OTHER RACES > 60 ML/MIN (>=60 (CALC)); SGOT/AST 26 u/l (14-36); SODIUM 143 mmol/l (137-146); TOTAL PROTEIN 7.4 g/dL (6.3-8.2)
[2022-10-12 06:46] VITALS: BP 178/75
[2022-10-12 06:49] LABS: ACT PARTIAL THROMBO TIME 31.5 SECONDS (20.0-32.5)
[2022-10-12 06:51] LABS: INTERNATIONAL NORMALIZED RATIO 1.3 RATIO (0.7-1.3); PROTHROMBIN TIME 12.9 SECONDS (9.0-12.5)
[2022-10-12 07:01] VITALS: BP 129/85
[2022-10-12] MEDS ORDERED: PREDNISONE50 MG PO ×2 (07:02→07:33)
[2022-10-12] MEDS ORDERED: VIBRAMYCIN100 M2 PO ×2 (07:02→07:33)
[2022-10-12 07:16] VITALS: BP 152/59
[2022-10-12 07:34] VITALS: BP 152/59
== END 2022-10-12 07:34 | disposition home or self-care (01) ==
LOC: ED 05:57
PROVIDERS: Family Medicine
DX: J44.1 Chronic obstructive pulmonary disease with (acute) exacerbation (principal); I10 Essential (primary) hypertension; F31.9 Bipolar disorder, unspecified; F41.0 Panic disorder [episodic paroxysmal anxiety]; I48.91 Unspecified atrial fibrillation; F17.200 Nicotine dependence, unspecified, uncomplicated; Z86.73 Personal history of transient ischemic attack (TIA), and cerebral infarction without residual deficits; Z20.822 Contact with and (suspected) exposure to COVID-19

== ENCOUNTER 2022-10-26 06:18 | Emergency (ER) | payer OTHER ==
[2022-10-26] VITALS (9 sets, daily range): BP systolic 98–146; BP diastolic 38–71
[~2022-10-26] VITALS: Ht 177.8 cm; Wt 141.0 kg
[2022-10-26 07:09] LABS: BASO% 0.4 % (0-3); EOS% 1.5 % (0-8); HEMATOCRIT 45.9 % (37.0-47.0); IMMATURE GRANULOCYTES 0.8 % (0.0-5.0); LYMPH% 13.6 % (15-41); MEAN CELL VOLUME 96.4 fL CALC (80.0-100.0); MEAN CORPUSCULAR HGB 29.4 pG CALC (26.0-32.0); MEAN CORPUSCULAR HGB CONC 30.5 g/dL CAL (32.0-36.0); MONO% 9.3 % (2-13); NEUT# 7.53 thou/uL (2.00-7.15); NEUT% 74.4 % (42-76); RED BLOOD COUNT 4.76 mill/uL (4.20-5.60); RED CELL DISTRI WIDTH 12.4 % (11.5-15.5)
[2022-10-26 07:33] LABS: ALBUMIN 3.3 g/dL (3.2-5.0); ALKALINE PHOSPHATASE 88 u/l (38-126); ANION GAP 7 (6-22 (CALC)); BUN 12 mg/dL (7-17); BUN/CREATININE RATIO 17 (12-20 (CALC)); CARBON DIOXIDE 32 mmol/l (22-30); CHLORIDE 105 mmol/l (95-108); CREATININE 0.7 mg/dL (0.5-1.0); GFR FOR AFR.AMER. > 60 ML/MIN (>=60 (CALC)); GFR OTHER RACES > 60 ML/MIN (>=60 (CALC)); POTASSIUM 4.3 mmol/l (3.5-5.1); SGOT/AST 20 u/l (14-36); SODIUM 140 mmol/l (137-146); TOTAL PROTEIN 6.4 g/dL (6.3-8.2)
[2022-10-26 07:37] LABS: ACT PARTIAL THROMBO TIME 27.4 SECONDS (20.0-32.5); PROTHROMBIN TIME 9.3 SECONDS (9.0-12.5)
[2022-10-26 07:46] LABS: INTERNATIONAL NORMALIZED RATIO 0.9 RATIO (0.7-1.3)
[2022-10-26 07:54] LABS: BILIRUBIN, TOTAL 0.2 mg/dL (0.02-1.3)
== END 2022-10-26 11:30 | disposition short-term general hospital (02) ==
LOC: ED 06:18
PROVIDERS: Emergency Medicine
DX: S72.401A Unspecified fracture of lower end of right femur, initial encounter for closed fracture (principal); S01.111A Laceration without foreign body of right eyelid and periocular area, initial encounter; S61.411A Laceration without foreign body of right hand, initial encounter; S50.811A Abrasion of right forearm, initial encounter; T14.8XXA Other injury of unspecified body region, initial encounter; I10 Essential (primary) hypertension; J44.9 Chronic obstructive pulmonary disease, unspecified; I48.91 Unspecified atrial fibrillation; F31.9 Bipolar disorder, unspecified; F41.9 Anxiety disorder, unspecified; F17.200 Nicotine dependence, unspecified, uncomplicated; W10.9XXA Fall (on) (from) unspecified stairs and steps, initial encounter; Y92.008 Other place in unspecified non-institutional (private) residence as the place of occurrence of the external cause; Z86.73 Personal history of transient ischemic attack (TIA), and cerebral infarction without residual deficits
CPT/HCPCS: J2060

== ENCOUNTER 2023-01-28 08:08 | Emergency (ER) | payer OTHER ==
[~2023-01-28] VITALS: Ht 170.2 cm; Wt 136.0 kg
[2023-01-28] VITALS (10 sets, daily range): BP systolic 152–192; BP diastolic 61–105
[2023-01-28 08:53] LABS: BASO% 0.6 % (0-3); EOS% 2.1 % (0-8); HEMATOCRIT 45.7 % (37.0-47.0); HEMOGLOBIN 13.9 g/dl (12.0-16.0); IMMATURE GRANULOCYTES 0.3 % (0.0-5.0); LYMPH% 19.7 % (15-41); MEAN CELL VOLUME 92.3 fL CALC (80.0-100.0); MEAN CORPUSCULAR HGB 28.1 pG CALC (26.0-32.0); MEAN CORPUSCULAR HGB CONC 30.4 g/dL CAL (32.0-36.0); MONO% 9.8 % (2-13); NEUT# 4.92 thou/uL (2.00-7.15); NEUT% 67.5 % (42-76); RED BLOOD COUNT 4.95 mill/uL (4.20-5.60); RED CELL DISTRI WIDTH 14.2 % (11.5-15.5)
[2023-01-28 09:05] LABS: ALBUMIN 3.5 g/dL (3.2-5.0); ALKALINE PHOSPHATASE 118 u/l (38-126); ANION GAP 6 (6-22 (CALC)); BUN 14 mg/dL (7-17); BUN/CREATININE RATIO 18 (12-20 (CALC)); CARBON DIOXIDE 33 mmol/l (22-30); CHLORIDE 104 mmol/l (95-108); CREATININE 0.8 mg/dL (0.5-1.0); GFR FOR AFR.AMER. > 60 ML/MIN (>=60 (CALC)); GFR OTHER RACES > 60 ML/MIN (>=60 (CALC)); POTASSIUM 4.5 mmol/l (3.5-5.1); SGOT/AST 20 u/l (14-36); SODIUM 139 mmol/l (137-146); TOTAL PROTEIN 7.1 g/dL (6.3-8.2)
[2023-01-28 09:12] LABS: BILIRUBIN, TOTAL 0.4 mg/dL (0.02-1.3)
[2023-01-28] MEDS ORDERED: TOBRAMYCIN0.31 OD (11:05)
== END 2023-01-28 11:23 | disposition home or self-care (01) ==
LOC: ED 08:08
PROVIDERS: Family Medicine
DX: S05.01XA Injury of conjunctiva and corneal abrasion without foreign body, right eye, initial encounter (principal); S06.0X0A Concussion without loss of consciousness, initial encounter; E66.01 Morbid (severe) obesity due to excess calories; I48.91 Unspecified atrial fibrillation; I10 Essential (primary) hypertension; J44.9 Chronic obstructive pulmonary disease, unspecified; F31.9 Bipolar disorder, unspecified; F17.210 Nicotine dependence, cigarettes, uncomplicated; W01.190A Fall on same level from slipping, tripping and stumbling with subsequent striking against furniture, initial encounter; Y92.009 Unspecified place in unspecified non-institutional (private) residence as the place of occurrence of the external cause; Z86.73 Personal history of transient ischemic attack (TIA), and cerebral infarction without residual deficits
CPT/HCPCS: J2060

== ENCOUNTER 2023-03-02 11:39 | Emergency (ER) | payer OTHER ==
[2023-03-02] VITALS (10 sets, daily range): BP systolic 128–179; BP diastolic 62–75
[~2023-03-02] VITALS: Ht 170.2 cm; Wt 138.3 kg
[~2023-03-02 11:39] MED LIST changes: +TOBRAMYCIN0.31 OD
[2023-03-02] MEDS ORDERED: ELIQUIS5 MG PO (12:03)
[2023-03-02] MEDS ORDERED: TOPROL XL50 MG PO ×2 (12:04→12:05)
[2023-03-02] MEDS ORDERED: ADVAIR DISK1 INH (12:05)
[2023-03-02] MEDS ORDERED: LORTAB 1010 MG PO (12:06)
[2023-03-02] MEDS ORDERED: PROAIR DIG108 MCG/AC (12:06)
[2023-03-02 13:19] LABS: BASO% 0.1 % (0-3); EOS% 2.1 % (0-8); HEMATOCRIT 46.3 % (37.0-47.0); HEMOGLOBIN 14.1 g/dl (12.0-16.0); IMMATURE GRANULOCYTES 0.7 % (0.0-5.0); LYMPH% 19.2 % (15-41); MEAN CELL VOLUME 89.6 fL CALC (80.0-100.0); MEAN CORPUSCULAR HGB 27.3 pG CALC (26.0-32.0); MEAN CORPUSCULAR HGB CONC 30.5 g/dL CAL (32.0-36.0); MONO% 11.7 % (2-13); NEUT% 66.2 % (42-76); RED BLOOD COUNT 5.17 mill/uL (4.20-5.60); RED CELL DISTRI WIDTH 14.5 % (11.5-15.5)
[2023-03-02 13:34] LABS: ALBUMIN 3.6 g/dL (3.2-5.0); ALKALINE PHOSPHATASE 115 u/l (38-126); ANION GAP 9 (6-22 (CALC)); BILIRUBIN, TOTAL 0.5 mg/dL (0.02-1.3); BUN 14 mg/dL (7-17); BUN/CREATININE RATIO 22 (12-20 (CALC)); CARBON DIOXIDE 29 mmol/l (22-30); CHLORIDE 107 mmol/l (95-108); CREATININE 0.6 mg/dL (0.5-1.0); GFR FOR AFR.AMER. > 60 ML/MIN (>=60 (CALC)); GFR OTHER RACES > 60 ML/MIN (>=60 (CALC)); POTASSIUM 4.3 mmol/l (3.5-5.1); SGOT/AST 19 u/l (14-36); SODIUM 141 mmol/l (137-146); TOTAL PROTEIN 7.3 g/dL (6.3-8.2)
== END 2023-03-02 14:49 | disposition home or self-care (01) ==
LOC: ED 11:39
PROVIDERS: Family Medicine
DX: T84.418A Breakdown (mechanical) of other internal orthopedic devices, implants and grafts, initial encounter (principal); I10 Essential (primary) hypertension; I48.91 Unspecified atrial fibrillation; J44.9 Chronic obstructive pulmonary disease, unspecified; E66.01 Morbid (severe) obesity due to excess calories; F31.9 Bipolar disorder, unspecified; F41.0 Panic disorder [episodic paroxysmal anxiety]; F17.210 Nicotine dependence, cigarettes, uncomplicated; Z87.81 Personal history of (healed) traumatic fracture; Z86.73 Personal history of transient ischemic attack (TIA), and cerebral infarction without residual deficits; Y83.1 Surgical operation with implant of artificial internal device as the cause of abnormal reaction of the patient, or of later complication, without mention of misadventure at the time of the procedure

== ENCOUNTER 2023-03-06 05:10 | Observation (INO) | payer OTHER ==
[~2023-03-06] VITALS: Ht 170.2 cm; Wt 137.0 kg
[2023-03-06] VITALS (8 sets, daily range): BP systolic 127–158; BP diastolic 57–77
[~2023-03-06 05:10] MED LIST changes: +ADVAIR DISK1 INH; +LORTAB 1010 MG PO; +PROAIR DIG108 MCG/AC; +TOPROL XL50 MG PO
[2023-03-06 05:32] LABS: BASO% 0.3 % (0-3); EOS% 0.7 % (0-8); HEMOGLOBIN 13.6 g/dl (12.0-16.0); IMMATURE GRANULOCYTES 0.8 % (0.0-5.0); LYMPH% 8.7 % (15-41); MEAN CELL VOLUME 89.8 fL CALC (80.0-100.0); MEAN CORPUSCULAR HGB 27.8 pG CALC (26.0-32.0); MEAN CORPUSCULAR HGB CONC 30.9 g/dL CAL (32.0-36.0); MONO% 14.5 % (2-13); NEUT# 8.94 thou/uL (2.00-7.15); RED BLOOD COUNT 4.9 mill/uL (4.20-5.60); RED CELL DISTRI WIDTH 14.4 % (11.5-15.5)
[2023-03-06 05:56] LABS: ALKALINE PHOSPHATASE 65 u/l (38-126); BILIRUBIN, TOTAL 0.7 mg/dL (0.02-1.3); BUN 13 mg/dL (7-17); BUN/CREATININE RATIO 26 (12-20 (CALC)); CHLORIDE 115 mmol/l (95-108); CREATININE 0.5 mg/dL (0.5-1.0); GFR FOR AFR.AMER. > 60 ML/MIN (>=60 (CALC)); GFR OTHER RACES > 60 ML/MIN (>=60 (CALC)); POTASSIUM 3.8 mmol/l (3.5-5.1); SGOT/AST 28 u/l (14-36); SODIUM 140 mmol/l (137-146)
[2023-03-06 05:57] LABS: ALBUMIN 2.6 g/dL (3.2-5.0); ANION GAP 9 (6-22 (CALC)); CARBON DIOXIDE 20 mmol/l (22-30); TOTAL PROTEIN 5.7 g/dL (6.3-8.2)
[2023-03-07 00:19] VITALS: BP 149/59
[2023-03-07 05:12] VITALS: BP 154/72
[2023-03-07 05:22] LABS: URINE BILIRUBIN - DIPSTICK NEGATIVE (NEGATIVE); URINE COLOR YELLOW; URINE GLUCOSE - DIPSTICK NEGATIVE (NEGATIVE); URINE KETONE 15 mg/dL (NEGATIVE); URINE PROTEIN - DIPSTICK NEGATIVE (NEG-TRACE); URINE SPECIFIC GRAVITY 1.015; URINE UROBILINOGEN - DIPSTICK 0.2 E.U./dL (0.2)
[2023-03-07 05:22] LABS: BASO% 0.1 % (0-3); HEMATOCRIT 44.4 % (37.0-47.0); MEAN CELL VOLUME 86.7 fL CALC (80.0-100.0); MEAN CORPUSCULAR HGB 27.3 pG CALC (26.0-32.0); MEAN CORPUSCULAR HGB CONC 31.5 g/dL CAL (32.0-36.0); MONO% 6.7 % (2-13); NEUT# 12.51 thou/uL (2.00-7.15); NEUT% 86.2 % (42-76); RED BLOOD COUNT 5.12 mill/uL (4.20-5.60)
[2023-03-07 05:23] LABS: URINE BLOOD DIPSTICK SMALL (NEGATIVE); URINE LEUK ESTERASE NEGATIVE (NEGATIVE); URINE NITRITE - DIPSTICK NEGATIVE (Negative)
[2023-03-07 05:28] LABS: URINE BACTERIA FEW hpf; URINE EPITHELIAL CELLS FEW EPI/hpf (0-FEW); URINE WBC 0-2 WBC/hpf (0-5); URINE YEAST FEW hpf
[2023-03-07 05:38] LABS: BILIRUBIN, TOTAL 0.6 mg/dL (0.02-1.3); BUN 11 mg/dL (7-17); BUN/CREATININE RATIO 20 (12-20 (CALC)); CHLORIDE 106 mmol/l (95-108); CREATININE 0.6 mg/dL (0.5-1.0); GFR FOR AFR.AMER. > 60 ML/MIN (>=60 (CALC)); GFR OTHER RACES > 60 ML/MIN (>=60 (CALC)); MAGNESIUM 2.1 mg/dL (1.6-2.3); POTASSIUM 3.6 mmol/l (3.5-5.1); SGOT/AST 22 u/l (14-36); SODIUM 140 mmol/l (137-146)
[2023-03-07 05:40] LABS: ALBUMIN 3.7 g/dL (3.2-5.0); ALKALINE PHOSPHATASE 100 u/l (38-126); ANION GAP 9 (6-22 (CALC)); CARBON DIOXIDE 29 mmol/l (22-30); TOTAL PROTEIN 7.9 g/dL (6.3-8.2)
[2023-03-07 07:28] VITALS: BP 151/65
[2023-03-07] MEDS ORDERED: IPRATROPIU0.5 MG/3 M NEB (10:27)
[2023-03-07] MEDS ORDERED: ADVAIR DISK1 INH (10:28)
[2023-03-07] MEDS ORDERED: PREDNISONE10 MG PO (10:28)
== END 2023-03-07 11:55 | disposition home or self-care (01) ==
LOC: ED 05:10 → ED-I 06:00 → ED 06:19 → MS2 06:20
PROVIDERS: Emergency Medicine; Nurse Practitioner Family; ADMIT Student in an Organized Health Care Education/Training Program; ATTEND Student in an Organized Health Care Education/Training Program
DX: R07.9 Chest pain, unspecified (principal); J44.1 Chronic obstructive pulmonary disease with (acute) exacerbation; I10 Essential (primary) hypertension; I48.19 Other persistent atrial fibrillation; I25.10 Atherosclerotic heart disease of native coronary artery without angina pectoris; I45.10 Unspecified right bundle-branch block; F31.9 Bipolar disorder, unspecified; F41.9 Anxiety disorder, unspecified; F17.200 Nicotine dependence, unspecified, uncomplicated; Z86.73 Personal history of transient ischemic attack (TIA), and cerebral infarction without residual deficits; Z79.899 Other long term (current) drug therapy; Z20.822 Contact with and (suspected) exposure to COVID-19
CPT/HCPCS: G0378; S0164

== ENCOUNTER 2023-03-19 10:35 | Emergency (ER) | payer OTHER ==
[~2023-03-19] VITALS: Ht 170.2 cm; Wt 136.0 kg
[~2023-03-19 10:35] MED LIST changes: +IPRATROPIU0.5 MG/3 M NEB
[2023-03-19 11:34] LABS: BASO% 0.2 % (0-3); EOS% 1.1 % (0-8); HEMATOCRIT 46.1 % (37.0-47.0); HEMOGLOBIN 14.3 g/dl (12.0-16.0); IMMATURE GRANULOCYTES 0.3 % (0.0-5.0); LYMPH% 13.6 % (15-41); MEAN CELL VOLUME 89.9 fL CALC (80.0-100.0); MEAN CORPUSCULAR HGB 27.9 pG CALC (26.0-32.0); MONO% 8.8 % (2-13); NEUT# 7.57 thou/uL (2.00-7.15); RED BLOOD COUNT 5.13 mill/uL (4.20-5.60)
[2023-03-19 11:44] LABS: ALBUMIN 3.7 g/dL (3.2-5.0); ALKALINE PHOSPHATASE 108 u/l (38-126); ANION GAP 8 (6-22 (CALC)); BILIRUBIN, TOTAL 0.6 mg/dL (0.02-1.3); BUN 9 mg/dL (7-17); BUN/CREATININE RATIO 13 (12-20 (CALC)); CARBON DIOXIDE 28 mmol/l (22-30); CHLORIDE 106 mmol/l (95-108); CREATININE 0.7 mg/dL (0.5-1.0); GFR FOR AFR.AMER. > 60 ML/MIN (>=60 (CALC)); GFR OTHER RACES > 60 ML/MIN (>=60 (CALC)); POTASSIUM 3.9 mmol/l (3.5-5.1); SGOT/AST 24 u/l (14-36); SODIUM 138 mmol/l (137-146); TOTAL PROTEIN 7.3 g/dL (6.3-8.2)
[2023-03-19 12:50] VITALS: BP 128/84
== END 2023-03-19 13:01 | disposition home or self-care (01) ==
LOC: ED 10:35
PROVIDERS: Family Medicine
DX: M79.604 Pain in right leg (principal); I10 Essential (primary) hypertension; I48.91 Unspecified atrial fibrillation; J44.9 Chronic obstructive pulmonary disease, unspecified; F41.9 Anxiety disorder, unspecified; F31.9 Bipolar disorder, unspecified; F17.200 Nicotine dependence, unspecified, uncomplicated; Z86.73 Personal history of transient ischemic attack (TIA), and cerebral infarction without residual deficits; Z98.890 Other specified postprocedural states